=== PATIENT | female | born 2000 | race American Indian/Alaskan Native ===

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

== ENCOUNTER 2020-04-08 21:52 | Emergency (ER) | payer MEDICAID ==
[2020-04-08 22:42] VITALS: BP 109/67
[2020-04-08] MEDS ORDERED: IBUPROFEN 600 MG TAB PO ONE (23:59)
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
== END 2020-04-09 02:00 | disposition left against medical advice (07) ==
LOC: ED 21:52
DX: R51 Headache (principal); M54.5 Low back pain; Z79.899 Other long term (current) drug therapy; V49.59XA Passenger injured in collision with other motor vehicles in traffic accident, initial encounter; Y93.89 Activity, other specified; Y92.488 Other paved roadways as the place of occurrence of the external cause; Y99.8 Other external cause status
CPT/HCPCS: 72100; 99283

== ENCOUNTER 2021-12-01 20:06 | Emergency (ER) | payer MEDICAID ==
[2021-12-01 20:40] LABS: Basophils # (Auto) 0.1 K/mm3 (0.0-0.1); Basophils % (Auto) 0.8 % (0.0-1.8); Eosinophils # (Auto) 0.1 K/mm3 (0.0-0.4); Eosinophils % (Auto) 1.1 % (0.0-4.3); Hematocrit 38.4 % (30.3-42.9); Hemoglobin 12.5 gm/dl (10.1-14.3); Lymphocytes # (Auto) 2.8 K/mm3 (1.2-5.4); Lymphocytes % (Auto) 28.7 % (13.4-35.0); Mean Corpuscular HGB Conc 32 % (30-34); Mean Corpuscular Volume 94 fl (79-97); Monocytes # (Auto) 0.7 K/mm3 (0.0-0.8); Monocytes % (Auto) 7.4 % (0.0-7.3); Platelet Count 267 K/mm3 (140-440); Red Blood Count 4.11 M/mm3 (3.65-5.03); Red Cell Distribution Width 13.5 % (13.2-15.2)
[2021-12-02 01:20] LABS: Bacteria,Urine 3+ /HPF (Negative); Bilirubin,Urine NEG (Negative); Blood,Urine NEG (Negative); Color,Urine Yellow (Yellow); Mucus,Urine FEW /HPF; Protein,Urine <15 mg/dL mg/dL (Negative)
--- NOTE | 2021-12-02 02:48 | Emergency Department Report ---
<BALWINDER OSBORNE - Last Filed: 12/02/21 03:59> ED Female HPI - General Chief complaint: Vaginal Bleeding Stated complaint: BLEEDING Time Seen by Provider: 12/02/21 02:14 Source: patient Mode of arrival: Ambulatory Limitations: No Limitations - History of Present Illness Initial comments: 21-year-old F [place] female [place] emerged department complaining of having a positive test about 3 days ago and x2 when she repeated them today x2 and show positive she began to have pelvic cramping and vaginal bleeding history presents emerged department seeking further evaluation of her . She reports no fever, chills, sweats. No dysuria, no chest pain or palpitations. Reports no pelvic trauma to her knowledge Location: suprapubic Radiation: suprapubic Severity: mild, moderate Quality: dull, aching Consistency: constant Improves with: none Worsens with: none Are you Now?: Yes Associated Symptoms: vaginal bleeding, abdominal pain. denies: nausea/vomiting, fever/chills, loss of appetite, rash, shortness of breath, syncope - Related Data Previous Rx's Medication Instructions Recorded Last Taken Type HYDROcodone/APAP 5-325 [[place] 2 each PO Q6H PRN #20 tablet 03/26/18 Unknown Rx 5-325 mg TAB] Ibuprofen [Motrin 600 MG tab] 600 mg PO Q6H PRN #20 tablet 04/09/20 Unknown Rx Allergies Allergy/AdvReac Type Severity Reaction Status Date / Time No Known Allergies Allergy Unverified 09/21/17 15:10 ED Review of Systems Comment: All other systems reviewed and negative ED Past Medical Hx - Past Medical History Previous Medical History?: No Hx Hypertension: No Hx Congestive Heart Failure: No Hx Diabetes: No Hx Deep Vein Thrombosis: No Hx Renal Disease: No Hx Sickle Cell Disease: No Hx Seizures: No Hx Asthma: No Hx COPD: No Hx HIV: No - Surgical History Past Surgical History?: No - Social History Smoking Status: Never Smoker - Medications Home Medications: Home Medications Medication Instructions Recorded Confirmed Last Taken Type HYDROcodone/APAP 5-325 [[place] 2 each PO Q6H PRN #20 tablet 03/26/18 Unknown Rx 5-325 mg TAB] Ibuprofen [Motrin 600 MG tab] 600 mg PO Q6H PRN #20 tablet 04/09/20 Unknown Rx ED Physical Exam - General Limitations: No Limitations General appearance: alert, in no apparent distress - Head Head exam: Present: atraumatic, normocephalic - Eye Eye exam: Present: normal appearance, PERRL, EOMI Pupils: Present: normal accommodation - ENT ENT exam: Present: normal exam, mucous membranes moist - Neck Neck exam: Present: normal inspection - Respiratory Respiratory exam: Present: normal lung sounds bilaterally. Absent: respiratory distress, wheezes, chest wall tenderness, accessory muscle use - Cardiovascular Cardiovascular Exam: Present: regular rate, normal rhythm. Absent: systolic murmur, diastolic murmur, rubs, gallop - GI/Abdominal GI/Abdominal exam: Present: soft, tenderness (Tenderness to suprapubic area with palpation), normal bowel sounds - Extremities Exam Extremities exam: Present: normal inspection - Back Exam Back exam: Present: normal inspection - Neurological Exam Neurological exam: Present: alert, oriented X3 - Psychiatric Psychiatric exam: Present: normal affect, normal mood - Skin Skin exam: Present: warm, dry, intact, normal color. Absent: rash ED Medical Decision Making - Lab Data Result diagrams: 12/01/21 20:18 - Radiology Data Radiology results: report reviewed [facility] [address] [place] [address] Ultrasound Report Signed Patient: EMIL HOLBROOK MR#: [id number] : 2000 Acct:[id number] Age/Sex: 21 / F ADM Date: 12/01/21 Loc: ED Attending Dr: Ordering Physician: CHRISTY BLAIR Date of Service: 12/02/21 Procedure(s): US OB transvaginal Accession Number(s): [id number] cc: CHRISTY BLAIR ULTRASOUND OBSTETRIC INDICATION / CLINICAL INFORMATION: pregnatn pain and vaginal bleeding. Clinical Gestational Age (GA) in weeks, days: Beta-HCG 23.33 TECHNIQUE: Transabdominal and Transvaginal. COMPARISON: None available. FINDINGS: Uterus measures 7.9 x 3.4 x 5.0 cm. The endometrial cavity is nonthickened measuring 2.7 mm. The right ovary measures 2.2 x 1.5 x 3.9 cm and demonstrates no abnormality. Left ovary measures 3.0 x 1.7 x 1.7 cm and demonstrates no abnormality. Small cyst measuring 0.7 x 0.3 x 0.7 cm is present. There is no evidence of intrauterine or extrauterine gestational sac. IMPRESSION: 1. No evidence of intrauterine gestational sac on current study, short-term follow-up and surveillance of beta-hCG is recommended given the low beta hCG value. Signer Name: Federico Osborn II, MD Signed: 12/02/2021 2:58 AM Workstation Name: [id number] Transcribed By: MARGARITA Dictated By: FEDERICO OSBORN II, MD Electronically Authenticated By: FEDERICO OSBORN II, MD Signed Date/Time: 12/02/21257 DD/ 4 TD/TT: Print Cancel ED Disposition Clinical Impression: Vaginal bleeding in Disposition: 01 HOME / SELF CARE / HOMELESS Is pt being admited?: No Does the pt Need Aspirin: No Condition: Stable Instructions: First Trimester of , [id number] Additional Instructions: Ultrasound was obtained currently not showing any evidence of this could be an indication that is too early in the to discover on ultrasound it is recommended that you follow-up with your [facility] or primary care provider and repeat your hormone in the next 5 to 7 days Referrals: [facility] [Provider Group] - 3-5 Days RIAZ LIN MD [Primary Care Provider] - 3-5 Days <JUN SAHU - Last Filed: 12/02/21 05:31> ED Review of Systems ROS: Stated complaint: BLEEDING Other details as noted in HPI ED Course Vital Signs 12/01/21 12/02/21 20:08 04:35 Temperature 98.2 F Pulse Rate 82 90 Respiratory 16 14 Rate Blood Pressure 119/78 110/71 [Right] O2 Sat by Pulse 100 100 Oximetry ED Medical Decision Making - Lab Data Result diagrams: 12/01/21 20:18 Vital Signs 12/01/21 12/02/21 20:08 04:35 Temperature 98.2 F Pulse Rate 82 90 Respiratory 16 14 Rate Blood Pressure 119/78 110/71 [Right] O2 Sat by Pulse 100 100 Oximetry Lab Results 12/01/21 12/01/21 12/01/21 Range/Units 20:18 20:18 20:18 WBC 9.9 (4.5-11.0) K/mm3 RBC 4.11 (3.65-5.03) M/mm3 Hgb 12.5 (10.1-14.3) gm/dl Hct 38.4 (30.3-42.9) % MCV 94 (79-97) fl MCH 30 (28-32) pg MCHC 32 (30-34) % RDW 13.5 (13.2-15.2) % Plt Count 267 (140-440) K/mm3 Lymph % (Auto) 28.7 (13.4-35.0) % Wolfe % (Auto) 7.4 H (0.0-7.3) % Eos % (Auto) 1.1 (0.0-4.3) % Baso % (Auto) 0.8 (0.0-1.8) % Lymph # (Auto) 2.8 (1.2-5.4) K/mm3 Wolfe # (Auto) 0.7 (0.0-0.8) K/mm3 Eos # (Auto) 0.1 (0.0-0.4) K/mm3 Baso # (Auto) 0.1 (0.0-0.1) K/mm3 Seg Neutrophils % 62.0 (40.0-70.0) % Seg Neutrophils # 6.1 (1.8-7.7) K/mm3 HCG, Qual Positive (Negative) HCG, Quant 23.33 H (0-4) mIU/mL Urine Color (Yellow) Urine Turbidity (Clear) Urine pH (5.0-7.0) Ur Specific [place] (1.003-1.030) Urine Protein (Negative) mg/dL Urine Glucose (UA) (Negative) mg/dL Urine Ketones (Negative) mg/dL Urine Blood (Negative) Urine Nitrite (Negative) Urine Bilirubin (Negative) Urine Urobilinogen (<2.0) mg/dL Ur Leukocyte Esterase (Negative) Urine WBC (Auto) (0.0-6.0) /HPF Urine RBC (Auto) (0.0-6.0) /HPF U Epithel Cells (Auto) (0-13.0) /HPF Urine Bacteria (Auto) (Negative) /HPF Urine Mucus /HPF Blood Type 12/01/21 12/02/21 Range/Units 20:18 01:11 WBC (4.5-11.0) K/mm3 RBC (3.65-5.03) M/mm3 Hgb (10.1-14.3) gm/dl Hct (30.3-42.9) % MCV (79-97) fl MCH (28-32) pg MCHC (30-34) % RDW (13.2-15.2) % Plt Count (140-440) K/mm3 Lymph % (Auto) (13.4-35.0) % Wolfe % (Auto) (0.0-7.3) % Eos % (Auto) (0.0-4.3) % Baso % (Auto) (0.0-1.8) % Lymph # (Auto) (1.2-5.4) K/mm3 Wolfe # (Auto) (0.0-0.8) K/mm3 Eos # (Auto) (0.0-0.4) K/mm3 Baso # (Auto) (0.0-0.1) K/mm3 Seg Neutrophils % (40.0-70.0) % Seg Neutrophils # (1.8-7.7) K/mm3 HCG, Qual (Negative) HCG, Quant (0-4) mIU/mL Urine Color Yellow (Yellow) Urine Turbidity Clear (Clear) Urine pH 6.0 (5.0-7.0) Ur Specific [place] 1.025 (1.003-1.030) Urine Protein <15 mg/dl (Negative) mg/dL Urine Glucose (UA) Neg (Negative) mg/dL Urine Ketones Neg (Negative) mg/dL Urine Blood Neg (Negative) Urine Nitrite Neg (Negative) Urine Bilirubin Neg (Negative) Urine Urobilinogen 4.0 (<2.0) mg/dL Ur Leukocyte Esterase Neg (Negative) Urine WBC (Auto) 3.0 (0.0-6.0) /HPF Urine RBC (Auto) 1.0 (0.0-6.0) /HPF U Epithel Cells (Auto) 1.0 (0-13.0) /HPF Urine Bacteria (Auto) 3+ (Negative) /HPF Urine Mucus Few /HPF Blood Type O POSITIVE - Radiology Data Radiology results: report reviewed Critical care attestation.: If time is entered above; I have spent that time in minutes in the direct care of this critically ill patient, excluding procedure time. ED Disposition Is pt being admited?: No Does the pt Need Aspirin: No
--- NOTE | 2021-12-02 03:03 | Ultrasound Report ---
ULTRASOUND OBSTETRIC INDICATION / CLINICAL INFORMATION: pregnatn pain and vaginal bleeding. Clinical Gestational Age (GA) in weeks, days: Beta-HCG 23.33 TECHNIQUE: Transabdominal and Transvaginal. COMPARISON: None available. FINDINGS: Uterus measures 7.9 x 3.4 x 5.0 cm. The endometrial cavity is nonthickened measuring 2.7 mm. The right ovary measures 2.2 x 1.5 x 3.9 cm and demonstrates no abnormality. Left ovary measures 3.0 x 1.7 x 1.7 cm and demonstrates no abnormality. Small cyst measuring 0.7 x 0. 3 x 0.7 cm is present. There is no evidence of intrauterine or extrauterine gestational sac. IMPRESSION: 1. No evidence of intrauterine gestational sac on current study, short-term follow-up and surveillanc e of beta-hCG is recommended given the low beta hCG value. Signer Name: Leo Brenner II, MD Signed: 12/02/2021 2:58 AM Workstation Name: [id number]
[2021-12-02 04:36] VITALS: BP 110/71
== END 2021-12-02 04:36 | disposition home or self-care (01) ==
LOC: ED 20:06
DX: O46.91 Antepartum hemorrhage, unspecified, first trimester (principal); Z3A.00 Weeks of gestation of pregnancy not specified
CPT/HCPCS: 36415; 76801; 76817; 81001; 84702; 84703; 85025; 86900; 86901; 99284